=== PATIENT | female | born 1930 ===

== ENCOUNTER 2018-04-23 08:36 | Day surgery (SDC) | payer MEDICARE, MEDICAID ==
[2018-04-16 08:46] VITALS: BMI 34.3
--- NOTE | 2018-04-23 11:18 | CP.SDSHP ---
Same Day Surgery H & P - History Proposed Procedure: US guided right thyroid FNA Pre-Op Diagnosis: Thyroid nodule - Allergies Allergies: Allergies No Known Allergies Allergy (Verified 04/16/18 08:46) - Impression Impression: Pt with a 1.5 cm right thyroid nodule. Plan US guided FNA. Pt. Evaluated Today:Candidate for Anesthesia & Procedure: No - Date & Time Date: 04/23/18 Time: 11:15 Short Stay Discharge - Short Stay Discharge Admitting Diagnosis/Reason for Visit: DX: MULTIPLE TYROID NODULES R>L Disposition: HOME/ ROUTINE
--- NOTE | 2018-04-23 11:22 | PCM.SURG1 ---
Surgeon's Initial Post Op Note - Surgeon's Notes Surgeon: Mitch Zambrano MD Post Partum Nurse: NONE Type of Anesthesia: Local Pre-Operative Diagnosis: Thyroid nodule Operative Findings: US shows a 1.5 cm right thyroid nodule Post-Operative Diagnosis: Thyroid nodule Operation Performed: US guided FNA of right thyroid nodule Specimen/Specimens Removed: 25 g FNA x 5 passes Estimated Blood Loss: EBL {In ML}: 1 Blood Products Given: N/A Drains Used: No Drains Post-Op Condition: Fair Date of Surgery/Procedure: 04/23/18 Time of Surgery/Procedure: 11:00
--- NOTE | 2018-04-24 12:01 | US ---
PROCEDURE: Date of Procedure: 04/23/2018 PROCEDURE: 1. Ultrasound guided FNA of right thyroid nodule, CPT 24220 2. Ultrasound guidance for FNA, 21488 Medications: 3cc 1% Lidocaine HISTORY: Enlarged right thyroid nodule. TECHNIQUE: Following informed consent and procedure time-out, a limited ultrasound patient's neck confirmed the presence of a 1.5 Cm complex right thyroid nodule which is predominantly solid. After the patient's neck was prepped and draped in the usual sterile fashion, the skin was anesthetized with 1% lidocaine. Ultrasound-guided fine needle aspiration was then performed of the dominant right thyroid nodule. A total of 5 passes were made into the nodule with 25 gauge needle under ultrasound guidance. The FNA specimen was sent for routine pathology and genetics . Post biopsy ultrasound showed no hematoma. IMPRESSION: Ultrasound-guided FNA of the dominant right thyroid nodule.
== END 2018-04-23 14:06 | disposition home or self-care (01) ==
LOC: C.SPRAD 08:36
PROVIDERS: ATTEND Radiology Vascular & Interventional Radiology
DX: E04.1 Nontoxic single thyroid nodule (principal)